=== PATIENT | female | born 1985 | race Caucasian/White ===

== ENCOUNTER 2016-08-28 14:58 | Emergency (ER) | payer MEDICAID, OTHER ==
[~2016-08-28] VITALS: Ht 154.9 cm; Wt 59.9 kg
[~2016-08-28 14:58] MED LIST: AUGM875T PO; METR-1 PO
[2016-08-28 15:08] VITALS: BP 107/68; PULSE 106; RESP 16; TEMP 98.7; O2SAT 98
--- NOTE | 2016-08-28 15:24 | PD ---
HPI . rash on body x 1 day Chief Complaint: Skin Problem Time Seen by Provider: 15:32 Travel History International Travel<30 days: No Contact w/Intl Traveler<30days: No Traveled to known affect area: No History of Present Illness HPI 30-year-old female here with complaints of a rash that appeared one day ago. Patient's telling me that she saw a telemedicine provider who told her that it was a virus. She denies usage of any new medications, soaps or hygiene products. She denies any associated symptoms of fever, chills, cold symptoms, nausea, vomiting, abdominal pain, diarrhea, or abdominal pain. She denies any shortness of breath. PFSH Past Medical History Diminished Hearing: No Musculoskeletal: Yes (TENDONITIS BOTH WRISTS IN PAST) Reproductive: Yes (ENDOMETRIOSIS) ?: Not LMP: 2-3 WEEKS AGO : 3 Para: 1 Miscarriage: 0 : 1 Past Surgical History Oral Surgery: Yes (ADNOIDS) Social History Alcohol Use: Yes (OCCASIONAL) Tobacco Use: Yes (STATES TRYING TO QUIT AND USING E-CIG) Substance Use: No Allergies-Medications (Allergen,Severity, Reaction): Coded Allergies: Tramadol (Verified Adverse Reaction, Intermediate, WORSENING TENSION HEADACHE, 08/28/16) Tylenol #3 (Verified Adverse Reaction, Intermediate, N/V, 08/28/16) Reported Meds & Prescriptions Reported Meds & Active Scripts Active Pepcid (Famotidine) 20 Mg Tab 20 Mg PO BID Medrol Dosepak (Methylprednisolone) 4 Mg Dspk 4 Mg PO DIRECTED Per Pharmacist direction Flagyl (Metronidazole) 500 Mg Tab 500 Mg PO Q12HR 7 Days Augmentin (Amoxicillin-Clavulanate) 875-125 mg Tab 875 Mg PO Q12HR 10 Days not for use in CrCl <30 ml/min. Review of Systems General / Constitutional: No: Fever Eyes: No: Visual changes HENT: No: Headaches Cardiovascular: No: Chest Pain or Discomfort Respiratory: No: Shortness of Breath Gastrointestinal: No: Abdominal Pain Genitourinary: No: Dysuria Musculoskeletal: No: Pain Skin: Positive Rash, Positive Itching Neurologic: No: Weakness Psychiatric: No: Depression Endocrine: No: Polydipsia Hematologic/Lymphatic: No: Easy Bruising Physical Exam Narrative GENERAL: AAO x 3, no acute distress, Well-nourished, well-developed patient. SKIN: Warm and dry. No visible rashes or bruising. HIVES SCATTERED THROUGHOUT BODY. urticarial like rash dispersed on all extremities, abdomen, chest. spares face HEAD: Normocephalic and atraumatic. EYES: No scleral icterus. No injection or drainage. ENT: No nasal drainage noted. Mucous membranes pink. Airway patent. Posterior pharynx normal. NECK: Supple, trachea midline. No JVD. CARDIOVASCULAR: Regular rate and rhythm without murmurs, gallops, or rubs. RESPIRATORY: Breath sounds equal bilaterally. No accessory muscle use. No rhonchi or rales. GASTROINTESTINAL: Abdomen soft, non-tender, nondistended. EXTREMITIES: No cyanosis or edema. BACK: Nontender without obvious deformity. No CVA tenderness. PSYCH: AAO x 3, normal affect. Data Data Last Documented VS Vital Signs Date Time Temp Pulse Resp B/P Pulse Ox O2 Delivery O2 Flow Rate FiO2 08/28/16 15:08 98.7 106 16 107/68 98 Orders Prednisone (Deltasone) (08/28/16 15:45) Methylprednisolone So Succ Inj (Solumedr (08/28/16 16:15) MDM Medical Decision Making Medical Screen Exam Complete: Yes Emergency Medical Condition: Yes Medical Record Reviewed: Yes Differential Diagnosis allergic reaction, drug reaction, urticaria, less likely cellulitis Narrative Course 30-year-old female here with complaints of a rash that appeared one day ago. Patient's telling me that she saw a telemedicine provider who told her that it was a virus. She denies usage of any new medications, soaps or hygiene products. She denies any associated symptoms of fever, chills, cold symptoms, nausea, vomiting, abdominal pain, diarrhea, or abdominal pain. She denies any shortness of breath. Patient seen and examined. Discussed with her that this looks like an urticarial/hive-like reaction to something. The offending agent is unknown at this time. Advised to use prednisone. Solumedrol given to her here in the emergency department. Patient wanted a second opinion. Case was discussed with Dr. Lazar. She was discharged with medrol dose pack, pepcid and vistaril Diagnosis Primary Impression: Urticaria Patient Instructions: General Instructions, Urticaria (ED) Additional Instructions: Please return to emergency department if your symptoms return or worsen. Follow up with your primary care provider. Take medications as prescribed. Med/Other Pt SpecificInfo: Prescription(s) given Scripts Hydroxyzine Pamoate (Vistaril)50 Mg Cap50 Mg PO BID #20 CAP Ref 0 Prov:Gilda Lazar MD 08/28/16 Famotidine (Pepcid)20 Mg Tab20 Mg PO BID #10 TAB Ref 0 Prov:Gilda Lazar MD 08/28/16 Methylprednisolone Dosepak (Medrol Dosepak)4 Mg Dspk4 Mg PO DIRECTED #1 DSPK Ref 0 Per Pharmacist direction Prov:Gilda Lazar MD 08/28/16 Disposition: 01 DISCHARGE HOME Condition: Stable Mariola Connors Aug 28, 2016 15:24
[2016-08-28] MEDS ORDERED: FAMO1TAB37 PO (15:38)
[2016-08-28] MEDS ORDERED: MEDR4PAK PO (15:38)
[2016-08-28] MEDS ORDERED: predniSONE 50 MG TAB PO ONE (15:45)
[2016-08-28] MEDS ORDERED: VIST50CA PO (16:05)
[2016-08-28] MEDS ORDERED: methylPREDNISolone SOD SUCC 125 MG/2 ML VIAL IM ONE (16:15)
== END 2016-08-28 16:17 | disposition home or self-care (01) ==
LOC: PHEFT 14:58
DX: L50.9 Urticaria, unspecified (principal); F17.210 Nicotine dependence, cigarettes, uncomplicated
CPT/HCPCS: 96372; 99282; J2930

== ENCOUNTER 2016-09-30 19:06 | Emergency (ER) | payer MEDICAID, OTHER ==
[~2016-09-30] VITALS: Ht 160 cm; Wt 59.4 kg
[~2016-09-30 19:06] MED LIST changes: +FAMO1TAB37 PO; +MEDR4PAK PO; +VIST50CA PO
[2016-09-30 19:08] VITALS: BP 124/79; PULSE 119; RESP 14; TEMP 100.6; O2SAT 98
[2016-09-30 19:30] VITALS: BP 106/70; PULSE 108; RESP 18; TEMP 100.6; O2SAT 99
[2016-09-30] MEDS ORDERED: SODIUM CHLOR 0.9% 1000 ML INJ 1,000 ML IV ONE (19:30)
[2016-09-30] MEDS ORDERED: IBUPROFEN SUSP 100 MG/5 ML UDC PO ONE (19:30)
[2016-09-30] MEDS ORDERED: ACETAMINOPHEN 650 MG/20.3 ML UDC PO ONE (19:30)
[2016-09-30] MEDS ORDERED: DEXAMETHASONE SOD PHOS 4 MG/ML VIAL IV ONE (19:30)
[2016-09-30] MEDS ORDERED: ONDANSETRON HCL 4 MG/2 ML VIAL IV PUSH ONE (19:30)
[2016-09-30] MEDS ORDERED: SODIUM CHLORIDE 0.9% FLUSH 10 ML FLUSH IVF PRN ×2 (19:30→20:45)
--- NOTE | 2016-09-30 19:41 | PD ---
HPI Chief Complaint: ENT Complaint Time Seen by Provider: 19:29 Travel History International Travel<30 days: No Contact w/Intl Traveler<30days: No Traveled to known affect area: No History of Present Illness HPI 30-year-old female presents to the emergency department for complaint of 2 days of sore throat associated with fever. Poor oral intake secondary to painful swallowing. No difficulty with breathing. Patient can take oral hydration and handles oral secretions but not drinking because of pain. Patient is not taking any acetaminophen or ibuprofen as it hurts to swallow and did not consider taking medication in liquid form. Patient denies other concerns or complaints. Speaks with mildly muffled speech but no hoarseness or stridor. No cough no congestion no shortness of breath no nausea or vomiting. Last period was 2 weeks ago and normal for her. Patient denies . No reported known sinus drainage sinus pressure sinus headache or ear pain. No neck pain or stiffness. Patient rates her pain 8/10 in intensity. PFSH Past Medical History Narrative Medical Bilateral wrist tendinitis, endometriosis, adenoidectomy; alcohol use tobacco use; nursing notes reviewed Diminished Hearing: No Musculoskeletal: Yes (TENDONITIS BOTH WRISTS IN PAST) Reproductive: Yes (ENDOMETRIOSIS) ?: Not : 3 Para: 1 Miscarriage: 0 : 1 Past Surgical History Oral Surgery: Yes (ADNOIDS) Social History Alcohol Use: Yes (OCCASIONAL) Tobacco Use: Yes (STATES TRYING TO QUIT AND USING E-CIG) Substance Use: No Allergies-Medications (Allergen,Severity, Reaction): Coded Allergies: Tramadol (Verified Adverse Reaction, Intermediate, WORSENING TENSION HEADACHE, 09/30/16) Tylenol #3 (Verified Adverse Reaction, Intermediate, N/V, 09/30/16) Reported Meds & Prescriptions Reported Meds & Active Scripts Active Zofran Odt (Ondansetron Odt) 4 Mg Tab 4 Mg SL Q6HR PRN Medrol Dosepak (Methylprednisolone) 4 Mg Dspk 4 Mg PO DIRECTED Per Pharmacist direction Clindamycin Liq 75 Mg/5 Ml Soln 300 Mg PO Q6H 10 Days Review of Systems Except as stated in HPI: all other systems reviewed are Neg General / Constitutional: Positive: Fever, No: Chills HENT: Positive: Sore Throat, No: Congestion, Neck Stiffness, Neck Pain Cardiovascular: No: Chest Pain or Discomfort Respiratory: No: Shortness of Breath Gastrointestinal: No: Nausea, Vomiting, Abdominal Pain Genitourinary: No: Flank Pain Musculoskeletal: No: Myalgias, Arthralgias Skin: No Rash Neurologic: No: Weakness Psychiatric: No: Anxiety Hematologic/Lymphatic: No: Lymph Node Enlargement Physical Exam Narrative GENERAL: Well-developed well-nourished female in no acute distress no respiratory distress; no stridor or hoarseness. SKIN: Warm and dry. HEAD: Normocephalic. EYES: No scleral icterus. No injection or drainage. ENT: Mucous membranes moist , bilateral tonsillar erythema and edema with exudate, uvula midline, mild erythema and mild soft tissue swelling to the right soft palate. NECK: Supple, trachea midline. No JVD. Bilateral anterior cervical lymphadenopathy. CARDIOVASCULAR: Regular rate and rhythm without murmurs, gallops, or rubs. RESPIRATORY: Breath sounds equal bilaterally. No accessory muscle use. GASTROINTESTINAL: Abdomen soft, non-tender, nondistended. MUSCULOSKELETAL: No cyanosis, or edema. BACK: Nontender without obvious deformity. No CVA tenderness. Data Data Last Documented VS Vital Signs Date Time Temp Pulse Resp B/P Pulse Ox O2 Delivery O2 Flow Rate FiO2 10/01/16 00:10 90 18 99/64 96 Room Air 09/30/16 23:50 97.6 Orders Basic Metabolic Panel (Bmp) (09/30/16 19:30) Complete Blood Count With Diff (09/30/16 19:30) Monoscreen (09/30/16 19:30) Blood Culture (09/30/16 19:30) Group A Rapid Strep Screen (09/30/16 19:30) Dexamethasone Inj (Decadron Inj) (09/30/16 19:30) Sodium Chloride 0.9% Flush (Ns Flush) (09/30/16 19:30) Ibuprofen Liq (Motrin Liq) (09/30/16 19:30) Acetaminophen 650 Mg/20 Ml Liq (Tylenol (09/30/16 19:30) Ondansetron Inj (Zofran Inj) (09/30/16 19:30) Sodium Chlor 0.9% 1000 Ml Inj (Ns 1000 M (09/30/16 19:30) Clindamycin Inj (Cleocin Inj) (09/30/16 19:45) Ct Soft Tiss Neck W Iv Cont (09/30/16 20:41) Sodium Chloride 0.9% Flush (Ns Flush) (09/30/16 20:45) Ed Urine Pregnancytest Poc (09/30/16 20:41) Ketorolac Inj (Toradol Inj) (09/30/16 20:45) Lactic Acid (09/30/16 20:44) Iohexol 350 Inj (Omnipaque 350 Inj) (09/30/16 22:58) Ceftriaxone Inj (Rocephin Inj) (10/01/16 00:15) Labs Laboratory Tests Test 09/30/16 09/30/16 19:35 20:59 White Blood Count 27.1 TH/MM3 Red Blood Count 4.76 MIL/MM3 Hemoglobin 14.1 GM/DL Hematocrit 41.9 % Mean Corpuscular Volume 88.0 FL Mean Corpuscular Hemoglobin 29.6 PG Mean Corpuscular Hemoglobin 33.6 % Concent Red Cell Distribution Width 13.5 % Platelet Count 252 TH/MM3 Mean Platelet Volume 8.7 FL Neutrophils (%) (Auto) 85.4 % Lymphocytes (%) (Auto) 7.0 % Monocytes (%) (Auto) 6.7 % Eosinophils (%) (Auto) 0.1 % Basophils (%) (Auto) 0.8 % Neutrophils # (Auto) 23.2 TH/MM3 Lymphocytes # (Auto) 1.9 TH/MM3 Monocytes # (Auto) 1.8 TH/MM3 Eosinophils # (Auto) 0.0 TH/MM3 Basophils # (Auto) 0.2 TH/MM3 CBC Comment AUTO DIFF Differential Comment AUTO DIFF CONFIRMED Sodium Level 137 MEQ/L Potassium Level 3.7 MEQ/L Chloride Level 104 MEQ/L Carbon Dioxide Level 21.2 MEQ/L Anion Gap 12 MEQ/L Blood Urea Nitrogen 8 MG/DL Creatinine 0.75 MG/DL Estimat Glomerular Filtration 91 ML/MIN Rate Random Glucose 142 MG/DL Calcium Level 8.7 MG/DL Monoscreen POS Lactic Acid Level 1.2 mmol/L MDM Medical Decision Making Medical Screen Exam Complete: Yes Emergency Medical Condition: Yes Medical Record Reviewed: Yes Interpretation(s) [id number] hCG: Negative Rapid strep antigen: Positive Monospot: Positive Metabolic panel: Within normal range CBC is automated differential: leukocytosis 27,000 with left shift Vital Signs Date Time Temp Pulse Resp B/P Pulse Ox O2 Delivery O2 Flow Rate FiO2 09/30/16 21:15 98.8 93 18 112/70 97 Room Air 09/30/16 20:15 104 18 124/67 97 Room Air 09/30/16 19:40 18 09/30/16 19:30 100.6 108 18 106/70 99 Room Air 09/30/16 19:08 100.6 119 14 124/79 98 CBC & BMP Diagram 09/30/16 19:[address] 09/30/162040 Signed Impressions: Service Date/Time: , September 30, 2016 22:15 - CONCLUSION: Swollen tonsils bilaterally with masses within them in addition to significant pathological adenopathy bilaterally could be due to infectious etiologies and reactive lymph nodes versus underlying malignancy. Denis Macias MD Differential Diagnosis Tonsillitis, peritonsillar abscess, mononucleosis, retropharyngeal abscess Narrative Course IV access obtained specimens collected and sent for resulting; patient administered antibiotics IV fluid bolus, Decadron, clindamycin, and Zofran Leukocytosis 27,000 white count; positive rapid strep antigen and positive Monospot leukocytosis consistent with infectious process as well as dehydration and stress demargination Lactic acid is 1.2, not elevated At 10:[address] At 11:[address] resulted no evidence for abscess tonsils are edematous and consistent with infectious process with associated lymphadenopathy; patient clinically improved pain 4/10 down from 8-9/10. Call placed to medicine general production manager for admission. Additional call out for admission @ 11:50 PM pain down to 2/10 taking oral hydration well; is aware of plan for admission; states she cannot be admitted; discussed admission verses leaving AMA ; as unwilling to stay is aware of need for close follow up with PCP and need for taking antibiotic as prescribed if leaves and not willing to be admitted; walking about the ED exam room drinking fluids and taking popsicle. Patient also received rocephin 1 gm prior to leaving AMA; call to admitting provider cancelled. Patient aware of risk benefit for admission verses signing out against medical advice. I will give patient medications as do not want her to be without antibiotic management. Have reassessed her after Rocephin infused GCS 15 remains afebrile finished popsicle and oral hydration. Again informed patient recommend admission but states will sign AMA. AMA: The risks of leaving against medical advice without further evaluation treatment were discussed with the patient. These risks include cardiac dysfunction, cardiac dysrhythmia, sepsis/shock or . The patient indicated understanding of these risks and appeared to have the capacity to make this decision. Critical Care Narrative Aggregate critical care time was 40 minutes. Time to perform other separately billable procedures was not included in the critical care time. My time did not include minutes spent treating any other patients simultaneously or on activities that did not directly contribute to the patient's treatment. The services I provided to this patient were to treat and/or prevent clinically significant deterioration that could result in: Septic shock, airway obstruction , I provided critical care services requiring my management, as noted below: Chart data review, documentation time, medication orders and management, vital sign assessments/reviewing monitor data, ordering and reviewing lab tests, ordering and interpreting/reviewing x-rays and diagnostic studies, care of the patient and discussion of the patient with the admitting physicians. Sepsis Criteria SIRS Criteria (2 or more): Heart rate over 90, WBC > 10647, < 4000 or > 10% bands Sepsis Criteria (SIRS+source): Infect source susp/known Diagnosis Primary Impression: Acute tonsillitis Qualified Code: J03.00 - Acute non-recurrent streptococcal tonsillitis Additional Impressions: Mononucleosis Dehydration Left against medical advice Referrals: Primary Care Physician 2 days Patient Instructions: General Instructions Departure Forms: Tests/Procedures, Work Release Special Instructions: no work x 3 days Additional Instructions: Increase fluid hydration; recommend clear liquid diet for next 12-24 hours advance as tolerated to soft diet then bland diet then regular diet Complete course of antibiotic as prescribed Monitor temperature every 4 hours with thermometer take as needed acetaminophen/ Tylenol may use children's liquid acetaminophen/Tylenol every 4 hours for fever 100.4F or greater or for minor pain May use ibuprofen/Advil/Motrin every 6-8 hours as needed for fever 100.4F or greater may use children's liquid ibuprofen per package directions Return to the emergency department for any concerns or change in condition; pain fever or change in condition May use Zofran as prescribed as needed for nausea or vomiting Follow-up with primary care provider call office in a.m. or recheck in the ED x 1 day No work x 3 days Med/Other Pt SpecificInfo: Prescription(s) given Scripts Ondansetron Odt (Zofran Odt)4 Mg Tab4 Mg SL Q6HR PRN (Nausea/Vomiting) #10 TAB Ref 0 Prov:Marian Hyde MD 10/01/16 Methylprednisolone Dosepak (Medrol Dosepak)4 Mg Dspk4 Mg PO DIRECTED #1 DSPK Ref 0 Per Pharmacist direction Prov:Marian Hyde MD 10/01/16 Clindamycin Liq 75 Mg/5 Ml [id number] Mg PO Q6H 10 Days Ref 0 Prov:Marian Hyde MD 10/01/16 Disposition: 07 AGAINST MEDICAL ADVICE Condition: Stable Marian Hyde MD Sep 30, 2016 19:41
[2016-09-30] MEDS ORDERED: CLINDAMYCIN INJ 900 MG in SODIUM CHLORIDE 0.9% INJ 100 ML IV ONE (19:45)
[2016-09-30 20:00] LABS: POTASSIUM 3.7 MEQ/L (3.5-5.1)
[2016-09-30 20:05] LABS: AUTOMATED NEUTROPHIL # 23.2 TH/MM3 (1.8-7.7); BASOPHIL # 0.2 TH/MM3 (0-0.2); BASOPHIL % 0.8 % (0.0-2.0); BICARBONATE 21.2 MEQ/L (21.0-32.0); EOSINOPHIL % 0.1 % (0.0-4.0); HEMATOCRIT 41.9 % (35.0-46.0); LYMPHOCYTE # 1.9 TH/MM3 (1.0-4.8); MEAN CORPUSCULAR HEMOGLOBIN 29.6 PG (27.0-34.0); MEAN CORPUSCULAR HGB CONC 33.6 % (32.0-36.0); MONO % 6.7 % (0.0-8.0); NEUT % 85.4 % (16.0-70.0); PLATELET COUNT 252 TH/MM3 (150-450); RED BLOOD COUNT 4.76 MIL/MM3 (4.00-5.30); RED CELL DISTRIBUTION WIDTH 13.5 % (11.6-17.2); WHITE BLOOD COUNT 27.1 TH/MM3 (4.0-11.0)
[2016-09-30 20:09] LABS: HEMO FLAGS AUTO DIFF
[2016-09-30 20:15] VITALS: BP 124/67; PULSE 104; RESP 18; O2SAT 97
[2016-09-30 20:38] LABS: SCAN/DIFF AUTO DIFF CONFIRMED
[2016-09-30] MEDS ORDERED: KETOROLAC TROMETHAMINE 30 MG/ML (IVP) VIAL IV PUSH ONE (20:45)
[2016-09-30 21:15] VITALS: BP 112/70; PULSE 93; RESP 18; TEMP 98.8; O2SAT 97
[2016-09-30 22:15] VITALS: BP 106/63; PULSE 92; RESP 18; O2SAT 95
[2016-09-30] MEDS ORDERED: IOHEXOL 350 MG/ML 10 ML VIAL (for RAD DIAG) IV ONE (22:58)
--- NOTE | 2016-09-30 23:10 | RADHPO ---
EXAM DATE/TIME: 09/30/2016 22:15 [facility] COMPARISON: No previous studies available for comparison. INDICATIONS : Right neck pain. IV CONTRAST: 100 cc Omnipaque 350 (iohexol) IV RADIATION DOSE: 11.62 CTDIvol (mGy) MEDICAL HISTORY : None SURGICAL HISTORY : None. ENCOUNTER: Initial ACUITY: 1 day PAIN SCALE: 8/10 LOCATION: Right neck TECHNIQUE: Volumetric scanning of the neck was performed. Using automated exposure control and adjustment of th e mA and/or kV according to patient size, radiation dose was kept as low as reasonably achievable to obtain optimal diagnostic quality images. FINDINGS: The tonsils are swollen bilaterally worse on the right with mass like areas within them measuring 2.5 cm on the right and 1.6 cm on the left. There are multiple lymph nodes in the patient's neck bilater ally the largest one on the right group II jugular chain measuring 1.6 cm in size. No definite absces s is identified. The parotid glands, submandibular glands, thyroid glands appear intact. CONCLUSION: Swollen tonsils bilaterally with masses within them in addition to significant pathol ogical adenopathy bilaterally could be due to infectious etiologies and reactive lymph nodes versus u nderlying malignancy. Denis Macias MD on September 30, 2016 at 23:04 Board Certified Radiologist. This report was verified electronically.
[2016-09-30 23:50] VITALS: BP 104/55; PULSE 85; RESP 18; TEMP 97.6; O2SAT 97
[2016-10-01] MEDS ORDERED: CLIN75SO PO (00:04)
[2016-10-01] MEDS ORDERED: MEDR4PAK PO (00:04)
[2016-10-01] MEDS ORDERED: ZOFR4TAB3 SL (00:04)
[2016-10-01 00:10] VITALS: BP 99/64; PULSE 90; RESP 18; O2SAT 96
[2016-10-01] MEDS ORDERED: cefTRIAXone INJ 1,000 MG in SODIUM CHLORIDE 0.9% INJ 100 ML IV ONE (00:15)
== END 2016-10-01 01:32 | disposition left against medical advice (07) ==
LOC: PHED 19:06
DX: J03.00 Acute streptococcal tonsillitis, unspecified (principal); B27.90 Infectious mononucleosis, unspecified without complication; E86.0 Dehydration; D72.829 Elevated white blood cell count, unspecified; Z53.29 Procedure and treatment not carried out because of patient's decision for other reasons; Z72.0 Tobacco use; Z87.39 Personal history of other diseases of the musculoskeletal system and connective tissue; Z87.42 Personal history of other diseases of the female genital tract
CPT/HCPCS: 70491; 80048; 83605; 84703; 85025; 86308; 87040; 87880; 96361; 96365; 96367; 96375; 99285; J0696; J1100; J1885; J2405; J7030; Q9967

== ENCOUNTER 2017-02-01 15:24 | Emergency (ER) | payer MEDICAID ==
[~2017-02-01] VITALS: Ht 154.9 cm; Wt 58.2 kg
[~2017-02-01 15:24] MED LIST changes: -AUGM875T PO; +CLIN75SO PO; -FAMO1TAB37 PO; -METR-1 PO; -VIST50CA PO; +ZOFR4TAB3 SL
[2017-02-01 15:36] VITALS: BP 106/56; PULSE 72; RESP 16; TEMP 98.3; O2SAT 98
[2017-02-01] MEDS ORDERED: SODIUM CHLOR 0.9% 1000 ML INJ 1,000 ML IV SCH (17:07)
[2017-02-01] MEDS ORDERED: SUBO2MIS SL (17:10)
[2017-02-01] MEDS ORDERED: Birth control pill PO (17:10)
[2017-02-01] MEDS ORDERED: ONDANSETRON HCL 4 MG/2 ML VIAL IVP ONE (17:15)
[2017-02-01] MEDS ORDERED: SODIUM CHLORIDE 0.9% FLUSH 10 ML FLUSH IV FLUSH PRN (17:15)
--- NOTE | 2017-02-01 17:15 | PD ---
HPI Chief Complaint: Abdominal Pain Time Seen by Provider: 17:12 Travel History International Travel<30 days: No Contact w/Intl Traveler<30days: No Traveled to known affect area: No History of Present Illness HPI 31-year-old female patient presents to the ER today for several days history of nausea, vomiting, not keeping things down, and diffuse abdominal pains. Pain is describe it as 6 out of 10. She denies any diarrhea, fevers, or any other symptoms. Modifying Factors: None Associated Signs & Symptoms: Nausea, vomiting, diffuse abdominal pain Risk Factors: None PFSH Past Medical History Diminished Hearing: No Musculoskeletal: Yes (TENDONITIS BOTH WRISTS IN PAST) Reproductive: Yes (ENDOMETRIOSIS) Tetanus Vaccination: < 5 Years Influenza Vaccination: No ?: Not LMP: november on control : 2 Para: 1 Miscarriage: 0 : 0 Past Surgical History Oral Surgery: Yes (ADNOIDS) Social History Alcohol Use: Yes (Occ.) Tobacco Use: Yes (1 PPD) Substance Use: No Allergies-Medications (Allergen,Severity, Reaction): Coded Allergies: Tramadol (Verified Adverse Reaction, Intermediate, WORSENING TENSION HEADACHE, 02/01/17) Tylenol #3 (Verified Adverse Reaction, Intermediate, N/V, 02/01/17) Reported Meds & Prescriptions Reported Meds & Active Scripts Active Reported [ control pill] 1 Tab PO DAILY Suboxone Sublingual Film (Buprenorphine-Naloxone Sublingual Film) 2-0.5 Mg Film 1 Film SL DAILY Unique ID number required: Review of Systems Except as stated in HPI: all other systems reviewed are Neg Physical Exam Narrative GENERAL: Well-developed young female patient currently in mild distress. Awake and oriented 3. SKIN: Focused skin assessment warm/dry. HEAD: Atraumatic. Normocephalic. EYES: Pupils equal and round. No scleral icterus. No injection or drainage. ENT: No nasal bleeding or discharge. Mucous membranes pink and moist. NECK: Trachea midline. No JVD. CARDIOVASCULAR: Regular rate and rhythm. No murmur appreciated. RESPIRATORY: No accessory muscle use. Clear to auscultation. Breath sounds equal bilaterally. GASTROINTESTINAL: Abdomen soft, non-tender, nondistended. Hepatic and splenic margins not palpable. MUSCULOSKELETAL: No obvious deformities. No clubbing. No cyanosis. No edema. NEUROLOGICAL: Awake and alert. No obvious cranial nerve deficits. Motor grossly within normal limits. Normal speech. PSYCHIATRIC: Appropriate mood and affect; insight and judgment normal. Data Data Last Documented VS Vital Signs Date Time Temp Pulse Resp B/P Pulse Ox O2 Delivery O2 Flow Rate FiO2 02/01/17 17:20 98 Room Air 02/01/17 15:36 98.3 72 16 106/56 Orders Urinalysis - C+S If Indicated (02/01/17 16:53) Ed Urine Pregnancytest Poc (02/01/17 16:53) Complete Blood Count With Diff (02/01/17 17:07) Comprehensive Metabolic Panel (02/01/17 17:07) Lipase (02/01/17 17:07) Iv Access Insert/Monitor (02/01/17 17:07) Ecg Monitoring (02/01/17 17:07) Oximetry (02/01/17 17:07) Ondansetron Inj (Zofran Inj) (02/01/17 17:15) Sodium Chlor 0.9% 1000 Ml Inj (Ns 1000 M (02/01/17 17:07) Sodium Chloride 0.9% Flush (Ns Flush) (02/01/17 17:15) Beta Hcg (Quant/Titer) (02/01/17 17:07) Ed Poc Ultrasound (02/01/17 18:07) Labs Laboratory Tests Test 02/01/17 02/01/17 16:50 17:20 Urine Color YELLOW Urine Turbidity CLEAR Urine pH 6.0 Urine Specific Erin 1.006 Urine Protein NEG mg/dL Urine Glucose (UA) NEG mg/dL Urine Ketones NEG mg/dL Urine Occult Blood NEG Urine Nitrite NEG Urine Bilirubin NEG Urine Leukocyte Esterase NEG Urine WBC 0-2 /hpf Urine Squamous Epithelial 0-5 /hpf Cells Microscopic Urinalysis Comment CULT NOT INDICATED White Blood Count 8.0 TH/MM3 Red Blood Count 4.49 MIL/MM3 Hemoglobin 13.3 GM/DL Hematocrit 38.7 % Mean Corpuscular Volume 86.1 FL Mean Corpuscular Hemoglobin 29.7 PG Mean Corpuscular Hemoglobin 34.5 % Concent Red Cell Distribution Width 12.9 % Platelet Count 270 TH/MM3 Mean Platelet Volume 7.9 FL Neutrophils (%) (Auto) 43.9 % Lymphocytes (%) (Auto) 43.6 % Monocytes (%) (Auto) 9.4 % Eosinophils (%) (Auto) 2.0 % Basophils (%) (Auto) 1.1 % Neutrophils # (Auto) 3.5 TH/MM3 Lymphocytes # (Auto) 3.4 TH/MM3 Monocytes # (Auto) 0.8 TH/MM3 Eosinophils # (Auto) 0.2 TH/MM3 Basophils # (Auto) 0.1 TH/MM3 CBC Comment DIFF FINAL Differential Comment Sodium Level 137 MEQ/L Potassium Level 3.8 MEQ/L Chloride Level 107 MEQ/L Carbon Dioxide Level 22.3 MEQ/L Anion Gap 8 MEQ/L Blood Urea Nitrogen 3 MG/DL Creatinine 0.50 MG/DL Estimat Glomerular Filtration 144 ML/MIN Rate Random Glucose 79 MG/DL Calcium Level 8.8 MG/DL Total Bilirubin 0.4 MG/DL Aspartate Amino Transf 14 U/L (AST/SGOT) Alanine Aminotransferase 19 U/L (ALT/SGPT) Alkaline Phosphatase 35 U/L Total Protein 7.2 GM/DL Albumin 3.7 GM/DL Lipase 75 U/L Human Chorionic Gonadotropin, 86104 MIU/ML Quant MDM Medical Decision Making Medical Screen Exam Complete: Yes Emergency Medical Condition: Yes Medical Record Reviewed: Yes Interpretation(s) Laboratory Tests Test 02/01/17 17:20 Monocytes (%) (Auto) 9.4 % (0.0-8.0) Blood Urea Nitrogen 3 MG/DL (7-18) Aspartate Amino Transf 14 U/L (15-37) (AST/SGOT) Alkaline Phosphatase 35 U/L (45-117) Human Chorionic Gonadotropin, 46714 MIU/ML Quant (0-5) Differential Diagnosis Nausea, vomiting, diffuse abdominal painsgastroenteritis versus dehydration versus metabolic issues versus /hyperemesis gravidarum Narrative Course Abdomen is fairly benign and I do not suspect an acute intra-abdominal process. Lab work did not indicate significant metabolic issues or signs of dehydration. She is . A transabdominal ultrasound was done by me in the ER which shows early IUP. At this point, my plan would be to release the patient with follow-up to [facility]. Return for any worsening in vomiting, pain, bleeding, and as needed. The plan has been discussed with her and she states understanding. Procedures Procedure Narrative Transabdominal ER ultrasound was done by me which shows early IUP. Unable to see obvious heart tones or pole at this time due to early IUP. Diagnosis Primary Impression: Med/Other Pt SpecificInfo: Prescription(s) given Scripts Ondansetron Odt (Zofran Odt)4 Mg Tab4 Mg SL Q6HR PRN (Nausea/Vomiting) #7 TAB Ref 0 Prov:Kameron Langlye MD 02/01/17 Disposition: 01 DISCHARGE HOME Condition: Stable Kameron Langley MD Feb 01, 2017 17:15
[2017-02-01 17:18] LABS: BLOOD, URINE NEG (NEG); GLUCOSE,URINE NEG (NEG); KETONE, URINE NEG (NEG); NITRITE,URINE NEG (NEG)
[2017-02-01 17:20] VITALS: O2SAT 98
[2017-02-01 17:25] LABS: SQUAMOUS EPITHELIAL CELL URINE 0-5 /hpf (0-5); URINE COLOR YELLOW (YELLW/STRAW); WBC, URINE 0-2 /hpf (0-5)
[2017-02-01 17:26] LABS: AUTOMATED NEUTROPHIL # 3.5 TH/MM3 (1.8-7.7); BASOPHIL # 0.1 TH/MM3 (0-0.2); BASOPHIL % 1.1 % (0.0-2.0); EOSINOPHIL # 0.2 TH/MM3 (0-0.4); HEMATOCRIT 38.7 % (35.0-46.0); HEMO FLAGS DIFF FINAL; LYMPH % 43.6 % (9.0-44.0); LYMPHOCYTE # 3.4 TH/MM3 (1.0-4.8); MEAN CELL VOLUME 86.1 FL (80.0-100.0); MEAN CORPUSCULAR HEMOGLOBIN 29.7 PG (27.0-34.0); MEAN CORPUSCULAR HGB CONC 34.5 % (32.0-36.0); MONO % 9.4 % (0.0-8.0); NEUT % 43.9 % (16.0-70.0); PLATELET COUNT 270 TH/MM3 (150-450); RED BLOOD COUNT 4.49 MIL/MM3 (4.00-5.30); RED CELL DISTRIBUTION WIDTH 12.9 % (11.6-17.2)
[2017-02-01 17:26] LABS: COMMENT (UR) CULT NOT INDICATED; CULTURE IF INDICATED CULT NOT INDICATED
[2017-02-01 17:34] LABS: CHLORIDE 107 MEQ/L (98-107); POTASSIUM 3.8 MEQ/L (3.5-5.1); SODIUM (NA) 137 MEQ/L (136-145)
[2017-02-01 17:37] LABS: ANION GAP 8 MEQ/L (5-15); BICARBONATE 22.3 MEQ/L (21.0-32.0)
[2017-02-01 17:38] LABS: BLOOD UREA NITROGEN 3 MG/DL (7-18)
[2017-02-01 17:40] LABS: ALT (GPT) 19 U/L (10-53); AST (GOT) 14 U/L (15-37); GLOMERULAR FILTRATION RATE 144 ML/MIN (>89)
[2017-02-01 17:42] LABS: TOTAL BILIRUBIN ADULT 0.4 MG/DL (0.2-1.0)
[2017-02-01 17:43] LABS: ALKALINE PHOSPHATASE 35 U/L (45-117)
[2017-02-01 17:58] LABS: BETA HCG QUANT 61108 MIU/ML (0-5)
[2017-02-01] MEDS ORDERED: ZOFR4TAB3 SL (18:16)
[2017-02-01 18:29] VITALS: BP 115/65
== END 2017-02-01 18:48 | disposition home or self-care (01) ==
LOC: PHED 15:24
DX: O99.331 Smoking (tobacco) complicating pregnancy, first trimester (principal); F17.210 Nicotine dependence, cigarettes, uncomplicated; Z79.3 Long term (current) use of hormonal contraceptives; Z79.899 Other long term (current) drug therapy
CPT/HCPCS: 80053; 81001; 83690; 84702; 84703; 85025; 96374; 99285; J2405; J7030